=== PATIENT | female | born 1995 | race Caucasian/White ===

== ENCOUNTER 2023-09-16 13:01 | Outpatient (RCR) | payer BC, SELFPAY ==
[2023-09-16 13:10] VITALS: BP 113/68
[2023-09-16] MEDS: VENOFER 265 MG IV (13:23)
[2023-09-16 14:55] VITALS: BP 111/60
== END 2023-09-22 12:51 | disposition home or self-care (01) ==
LOC: OID 13:01
PROVIDERS: ATTENDING PHYSICIAN Physician Assistant
DX: D50.9 Iron deficiency anemia, unspecified (principal)
CPT/HCPCS: 96365; J1756